=== PATIENT | female | born 1970 | race Caucasian/White ===

== ENCOUNTER 2017-04-05 16:26 | Emergency (ER) | payer SELFPAY ==
[2017-04-05 16:28] VITALS: BMI 35.4
[2017-04-05 16:34] VITALS: BP 153/81; PULSE 101; RESP 16; TEMP 98.4; O2SAT 96
--- NOTE | 2017-04-05 17:11 | C.PDOC ---
History Of Present Illness 46 year old female presents to the ED with complaints of a diffuse itchy rash that began 3 days ago. Patient states , children, and people that live downstairs in their apartment are experiencing similar complaints. She denies any fever, discharge, difficulty breathing, difficulty swallowing, or other complaints at this time. No known allergens. No h/o similar symptoms. Time Seen by Provider: 04/05/17 16:56 Chief Complaint (Nursing): Abnormal Skin Integrity History Per: Patient History/Exam Limitations: no limitations Onset/Duration Of Symptoms: Days (3 days ago ) Current Symptoms Are (Timing): Still Present Quality Of Symptoms: Itching. denies: Painful, Swollen, Draining Recent travel outside of the [place]: No Past Medical History Reviewed: Historical Data, Nursing Documentation, Vital Signs Vital Signs: Last Vital Signs Temp 98.4 F 04/05/17 16:31 Pulse 101 H 04/05/17 16:31 Resp 16 04/05/17 16:31 BP 153/81 H 04/05/17 16:31 Pulse Ox 96 04/05/17 19:18 - Medical History PMH: Kidney Stones - [facility] Procedures LOW CERVICAL (07/10/14) Family History: States: Unknown Family Hx - Social History Hx Tobacco Use: No Hx Alcohol Use: No Hx Substance Use: No - Immunization History Hx Tetanus Toxoid Vaccination: No Hx Influenza Vaccination: No Hx Pneumococcal Vaccination: No Review Of Systems Constitutional: Negative for: Fever, Chills Respiratory: Negative for: Cough, Shortness of Breath Gastrointestinal: Negative for: Nausea, Vomiting, Abdominal Pain Skin: Positive for: Rash (diffuse rash ) Physical Exam - Physical Exam Appears: Non-toxic, No Acute Distress Skin: Warm, Dry, Other (multiple diffuse erythematus punctate leisions but concentrated on waist line, axilla, and chest. ) Head: Atraumatic, Normacephalic Eye(s): bilateral: Normal Inspection, PERRL, EOMI Nose: Normal Oral Mucosa: Moist Neck: Supple Chest: Symmetrical, No Deformity Cardiovascular: Rhythm Regular Respiratory: Normal Breath Sounds, No Rhonchi, No Wheezing Gastrointestinal/Abdominal: Soft, No Tenderness Neurological/Psych: Oriented x3, Normal Speech, Normal Cognition Gait: Steady ED Course And Treatment O2 Sat by Pulse Oximetry: 96 (room air ) Progress Note: Patient was instructed to inspect and fumigate the home. Patient was instructed to follow up with physician/clinic in 1-2 days for further evaluation. Disposition - Disposition Disposition: HOME/ ROUTINE Disposition Time: 17:09 Condition: STABLE Additional Instructions: Vaya a zamora mdico o la clnica en 1-3 caicedo sin falta, para mas evaluacin. [place] los medicamentos amaya indicado. Volver a la hernán de emergencia en cualquier momento si los sntomas persisten o empeoran. Prescriptions: DiphenhydrAMINE [Benadryl] 25 mg PO Q6 #20 cap Permethrin [Elimite] 60 gm TP ONCE #1 cream..g. Instructions: Bed Bugs (ED) Print Language: CITIZEN OF [place] - Clinical Impression Clinical Impression: Rash, Bug bite - Scribe Statement The provider has reviewed the documentation as recorded by the Scribe Isabel Lynn All medical record entries made by the Scribe were at my direction and personally dictated by me. I have reviewed the chart and agree that the record accurately reflects my personal performance of the history, physical exam, medical decision making, and the department course for this patient. I have also personally directed, reviewed, and agree with the discharge instructions and disposition.
== END 2017-04-05 17:20 | disposition home or self-care (01) ==
LOC: C.ER 16:26
DX: R21 Rash and other nonspecific skin eruption (principal); W57.XXXA Bitten or stung by nonvenomous insect and other nonvenomous arthropods, initial encounter; Y92.009 Unspecified place in unspecified non-institutional (private) residence as the place of occurrence of the external cause

== ENCOUNTER 2019-01-27 09:32 | Outpatient (CLI) | payer OTHER | END 2019-01-27 09:33 | disposition home or self-care (01) | LOC: C.MAMMO 09:33 ==